=== PATIENT | female | born 1995 | race Caucasian/White ===

== ENCOUNTER 2016-11-18 11:17 | Outpatient (CLI) | payer MEDICAID ==
--- NOTE | 2016-11-18 16:42 | XRAY Report ---
THREE VIEW LUMBAR SPINE: 11/18/2016 CLINICAL INDICATION: Piriformis syndrome. AP, lateral, coned-down views of the lumbar spine demonstrate mild levoscoliosis, which may be positi onal in nature. There is no evidence of fracture or dislocation. The disk spaces are preserved. An IUD is incidentally noted in the pelvis. IMPRESSION: MILD LEVOSCOLIOSIS, WHICH MAY BE POSITIONAL IN NATURE. JOB #: [id number] EXT JOB #:[id number]
== END 2016-11-18 11:18 | disposition home or self-care (01) ==
LOC: DI.N 11:17
PROVIDERS: ATTEND Family Medicine
DX: M41.86 Other forms of scoliosis, lumbar region (principal)
CPT/HCPCS: 72100

== ENCOUNTER 2017-03-01 12:37 | Emergency (ER) | payer MEDICAID ==
[2017-03-01 12:49] VITALS: BP 116/74
[2017-03-01 13:14] LABS: RAPID STREP SCREEN REAGENT QC YELLOW (YELLOW)
--- NOTE | 2017-03-01 13:55 | ED Physician Documentation ---
PD HPI URI - Stated complaint Stated Complaint: FEVER/SORE THROAT/COUGH - Chief complaint Chief Complaint: Heent - History obtained from History obtained from: Patient - History of Present Illness Timing - onset: Other (2 days of cough, green drainage from her sinuses, sore throat, runny nose. She has had some low-grade fevers with a maximum temperature of 100. Also for the last 5 days she has had intermittent sharp central chest pain that is worse with her motion and deep breathing but not affected by exertion. She is not short of breath. She has no health problems, no significant family medical history, and no recent travel.) Review of Systems Constitutional: reports: Fever, Fatigue. denies: Chills Nose: reports: Rhinorrhea / runny nose, Congestion. denies: Sinus pressure / pain Throat: reports: Sore throat Cardiac: reports: Chest pain / pressure Respiratory: reports: Cough. 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 : None HEENT: None Psych: None Musculoskeletal: None Derm: None - Past Surgical History Past Surgical History: Yes General: Appendectomy - Present Medications Home Medications: Ambulatory Orders Medication Instructions Recorded Confirmed Acetaminophen [Tylenol] 1 tab PO PRN PRN 03/01/17 03/01/17 Clotrimazole 1 gm TOP TID 28 Days 03/01/17 Ibuprofen [Motrin] 800 mg PO Q8H PRN #30 tablet 03/01/17 - Allergies Allergies/Adverse Reactions: Allergies Allergy/AdvReac Type Severity Reaction Status Date / Time No Known Drug Allergies Allergy Verified 03/01/17 12:49 - Social History Does the pt smoke?: Yes Smoking Status: Light tobacco smoker Does the pt drink ETOH?: Yes ETOH Use: Wine, Beer, Liquor Does the pt have substance abuse?: No - Immunizations Immunizations are current?: Yes - POLST Patient has POLST: No PD ED PE NORMAL - Vitals Vital signs reviewed: Yes - General General: Alert and oriented X 3, No acute distress - HEENT HEENT: Ears normal, Pharynx benign - Neck Neck: Supple, no meningeal sign, No bony TTP, No adenopathy - Cardiac Cardiac: RRR, No murmur, Other (Tender to the upper costochondral joints) - Respiratory Respiratory: No respiratory distress, Clear bilaterally - Abdomen Abdomen: Non tender - Derm Derm: Other (2 spots of ringworm to the dorsum of the right hand) - Extremities Extremities: No edema, No calf tenderness / cord - Neuro Neuro: Alert and oriented X 3, Normal speech - Psych Psych: Normal mood, Normal affect Results - Vitals Vitals: Vital Signs - 24 hr 03/01/17 12:45 Temperature 36.4 C L Heart Rate 79 Respiratory 18 Rate Blood Pressure 116/74 O2 Saturation 98 Oxygen O2 Source Room air - EKG (time done) 1436 Rate: Rate (enter#) (54) Rhythm: NSR [place]: Normal Intervals: Normal [place] QRS: Normal Ischemia: Normal ST segments Computer interpretation: Agree with computer - Labs Labs: Laboratory Tests 03/01/17 12:50 Group A Strep Rapid Negative - Rads (name of study) 2v chest Radiology: EMP read contemporaneously (normal) PD MEDICAL DECISION MAKING - ED course ED course: 21-year-old woman with 2 complaints, what seems to be a viral URI with negative rapid strep, also chest pain consistent with costochondritis. Departure - Departure Disposition: 01 Home, Self Care Clinical Impression: Viral URI, Costochondritis, Ringworm Condition: Good Record reviewed to determine appropriate education?: Yes Instructions: ED Pharyngitis Viral, ED Chest Pain Costochondritis Prescriptions: Clotrimazole 1 gm TOP TID 28 Days Ibuprofen [Motrin] 800 mg PO Q8H PRN #30 tablet PRN Reason: PAIN &/OR FEVER Comments: Call your doctor to arrange a follow-up appointment, make the next available appointment. In the interim, return anytime if worse or if new symptoms develop. Forms: Activity restrictions Discharge Date/Time: 03/01/17 14:52
--- NOTE | 2017-03-01 15:01 | XRAY Preliminary Report ---
Exam: XR Chest 2 View PA/LAT IMPRESSION: No focal lung consolidation or pleural effusions. [facility] SITE ID: [id number]
--- NOTE | 2017-03-01 15:03 | XRAY Report ---
EXAM: CHEST RADIOGRAPHY EXAM DATE: 03/01/2017 02:45 PM. CLINICAL HISTORY: Cough and congestion COMPARISON: None. TECHNIQUE: 2 views. FINDINGS: Lungs/Pleura: No focal lung consolidation. No pleural effusion. No pneumothorax. Mediastinum: Cardiac silhouette size appears unremarkable. Other: None. IMPRESSION: No focal lung consolidation or pleural effusions. [facility] Referring Provider Line: [phone] SITE ID: [id number]
== END 2017-03-01 14:52 | disposition home or self-care (01) ==
LOC: ED 12:37
DX: J06.9 Acute upper respiratory infection, unspecified (principal); M94.0 Chondrocostal junction syndrome [Tietze]; B35.9 Dermatophytosis, unspecified; F17.200 Nicotine dependence, unspecified, uncomplicated
CPT/HCPCS: 71020; 87070; 87430; 93005; 99283

== ENCOUNTER 2017-03-16 11:04 | Outpatient (CLI) | payer MEDICAID ==
[2017-03-16 19:22] LABS: BASOPHILS # (AUTO) 0.1 10^3/uL (0.0-0.1); BASOPHILS % (AUTO) 0.9 %; EOSINOPHILS # (AUTO) 0.1 10^3/uL (0.0-0.7); EOSINOPHILS % (AUTO) 1.4 %; HCT - HEMATOCRIT 40.3 % (37.0-47.0); HGB - HEMOGLOBIN 13.7 g/dL (12.0-16.0); LYMPHOCYTES # (AUTO) 2.4 10^3/uL (1.5-3.5); LYMPHOCYTES % (AUTO) 33.8 %; MEAN CORPUSCULAR HEMOGLOBIN 30.8 pg (27.0-31.0); MEAN CORPUSCULAR HGB CONC 34.1 g/dL (32.0-36.0); MEAN CORPUSCULAR VOLUME 90.4 fL (81.0-99.0); MEAN PLATELET VOLUME 9.4 fL (7.9-10.8); MONOCYTES # (AUTO) 0.6 10^3/uL (0.0-1.0); MONOCYTES % (AUTO) 7.9 %; NEUTROPHILS # (AUTO) 3.9 10^3/uL (1.5-6.6); RED BLOOD COUNT 4.46 10^6/uL (4.20-5.40); RED CELL DISTRIBUTION WIDTH 12.9 % (12.0-15.0)
[2017-03-16 19:23] LABS: ALBUMIN/GLOBULIN RATIO 1.5 (1.0-2.2); BUN - BLOOD UREA NITROGEN 10 mg/dL (6-20); CARBON DIOXIDE - CO2 26 mmol/L (21-32); CHLORIDE 107 mmol/L (101-111); CREATININE 0.7 mg/dL (0.4-1.0); GFR - MDRD 104 (>89); GLUCOSE 89 mg/dL (70-100); POTASSIUM 3.9 mmol/L (3.5-5.0); SODIUM 137 mmol/L (135-145); TOTAL PROTEIN 6.9 g/dL (6.7-8.2)
== END 2017-03-16 11:05 | disposition home or self-care (01) ==
LOC: LAB.N 11:04
PROVIDERS: ATTEND Family Medicine
DX: R55 Syncope and collapse (principal); R53.83 Other fatigue
CPT/HCPCS: 36415; 80053; 84443; 85025

== ENCOUNTER 2017-05-18 10:44 | Emergency (ER) | payer MEDICAID ==
--- NOTE | 2017-05-18 12:36 | XRAY Preliminary Report ---
Exam: XR CHEST 2 VIEW PA/LAT IMPRESSION: No radiographically apparent acute abnormality in the chest. Clear lungs. No significant change from prior. [facility] SITE ID: [id number]
--- NOTE | 2017-05-18 12:38 | XRAY Report ---
EXAM: CHEST RADIOGRAPHY EXAM DATE: 05/18/2017 11:57 AM. CLINICAL HISTORY: Fever and left sided coarse sounds. COMPARISON: 03/01/2017. TECHNIQUE: 2 views. FINDINGS: Lungs/Pleura: No focal opacities evident. No pleural effusion. No pneumothorax. Normal volumes. Mediastinum: Heart and mediastinal contours are unremarkable. Other: Bilateral nipple rings noted. IMPRESSION: No radiographically apparent acute abnormality in the chest. Clear lungs. No significant change from prior. [facility] Referring Provider Line: [phone] SITE ID: [id number]
--- NOTE | 2017-05-18 12:59 | ED Physician Documentation ---
History of Present Illness - Stated complaint Stated Complaint: FEVER/CONGESTION - Chief complaint Chief Complaint: Heent - History obtained from History obtained from: Patient (pt is here with a couple days of sinus congestion, runny nose, cough, sore throat and fevers, no rash,) Review of Systems Constitutional: reports: Fever, Chills Eyes: denies: Loss of vision, Discharge Ears: denies: Loss of hearing, Ear pain, Drainage/discharge, Tinnitus/ringing Nose: reports: Congestion, Sinus pressure / pain Throat: reports: Dental pain / toothache, Sore throat Cardiac: denies: Chest pain / pressure, Palpitations Respiratory: reports: Cough, Wheezing. 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 HEENT: None Psych: None Musculoskeletal: None Derm: None - Past Surgical History Past Surgical History: Yes General: Appendectomy - Present Medications Home Medications: Ambulatory Orders Medication Instructions Recorded Confirmed Cetirizine HCl/Pseudoephedrine 1 each PO BID PRN #30 tab.er.12h 05/18/17 [Zyrtec-D Tablet] Fluticasone [Flonase] 1 sprays MIKY DAILY #1 bottle 05/18/17 - Allergies Allergies/Adverse Reactions: Allergies Allergy/AdvReac Type Severity Reaction Status Date / Time No Known Drug Allergies Allergy Verified 03/01/17 12:49 - Social History Does the pt smoke?: Yes Smoking Status: Current every day smoker Does the pt drink ETOH?: Yes Does the pt have substance abuse?: No - Immunizations Immunizations are current?: Yes - POLST Patient has POLST: No PD ED PE NORMAL - Vitals Vital signs reviewed: Yes - General General: Alert and oriented X 3, No acute distress, Well developed/nourished - HEENT HEENT: Atraumatic, Ears normal, Moist mucous membranes, Pharynx benign - Cardiac Cardiac: RRR, No murmur - Respiratory Respiratory: No respiratory distress, Clear bilaterally - Abdomen Abdomen: Normal bowel sounds, Soft, Non tender - Derm Derm: Normal color, No rash - Extremities Extremities: No deformity - Neuro Neuro: Alert and oriented X 3 Eye Opening: Spontaneous Motor: Obeys Commands Verbal: Oriented GCS Score: 15 - Psych Psych: Normal mood, Normal affect Results - Vitals Vitals: Vital Signs - 24 hr 05/18/17 10:47 Temperature 36.4 C L Heart Rate 87 Respiratory 17 Rate Blood Pressure 140/79 H O2 Saturation 100 Oxygen O2 Source Room air - Rads (name of study) CXR Radiology: Final report received PD MEDICAL DECISION MAKING - ED course Complexity details: d/w patient ED course: no PNA on CXR. pt is non-toxic. no respiratory distress. no indication for ABX. discussed with her. will treat symptoms. Departure - Departure Disposition: 01 Home, Self Care Clinical Impression: Upper respiratory infection Condition: Good Instructions: ED URI Viral Follow-Up: Martell Melo MD [Primary Care Provider] - Prescriptions: Cetirizine HCl/Pseudoephedrine [Zyrtec-D Tablet] 1 each PO BID PRN #30 tab.er.12h PRN Reason: Allergy Symptoms Fluticasone [Flonase] 1 sprays MIKY DAILY #1 bottle Comments: take the medications as instructed. Return to the ER for any new or worsening symptoms.
[2017-05-18 13:11] VITALS: BP 128/70
== END 2017-05-18 13:11 | disposition home or self-care (01) ==
LOC: ED 10:44
DX: F17.200 Nicotine dependence, unspecified, uncomplicated (principal)
CPT/HCPCS: 71020; 99283

== ENCOUNTER 2017-07-14 18:29 | Emergency (ER) | payer MEDICAID ==
--- NOTE | 2017-07-14 19:51 | ED Physician Documentation ---
PD HPI ABD PAIN - Stated complaint Stated Complaint: AB PX - Chief complaint Chief Complaint: Abd Pain - History obtained from History obtained from: Patient - History of Present Illness Timing - onset: Other (She has chronic constipation which has been terrible over the last 2 weeks with basically no bowel movements despite taking multiple laxatives and suppositories. She Is not vomiting. There is no blood in the stool. Unlikely because she has an IUD in place. 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 HEENT: None Psych: None Musculoskeletal: None Derm: None - Past Surgical History Past Surgical History: Yes General: Appendectomy - Present Medications Home Medications: Ambulatory Orders Medication Instructions Recorded Confirmed No Known Home Medications [No 07/14/17 07/14/17 Known Home Medications] - Allergies Allergies/Adverse Reactions: Allergies Allergy/AdvReac Type Severity Reaction Status Date / Time No Known Drug Allergies Allergy Verified 03/01/17 12:49 - Social History Does the pt smoke?: Yes Smoking Status: Current every day smoker Does the pt drink ETOH?: Yes Does the pt have substance abuse?: No - Immunizations Immunizations are current?: Yes - POLST Patient has POLST: No PD ED PE NORMAL - Vitals Vital signs reviewed: Yes - General General: Alert and oriented X 3, No acute distress - Abdomen Abdomen: Normal bowel sounds, Soft, Non tender - Neuro Neuro: Alert and oriented X 3, Normal speech - Psych Psych: Normal mood, Normal affect Results - Vitals Vitals: Vital Signs - 24 hr 07/14/17 18:45 Temperature 36.7 C Heart Rate 72 Respiratory 16 Rate Blood Pressure 123/69 O2 Saturation 100 Oxygen O2 Source Room air - Labs Labs: Laboratory Tests 07/14/17 19:48 Urine Color YELLOW Urine Clarity CLEAR Urine pH 7.5 Ur Specific [place] <=1.005 Urine Protein NEGATIVE Urine Glucose (UA) NEGATIVE Urine Ketones NEGATIVE Urine Occult Blood NEGATIVE Urine Nitrite NEGATIVE Urine Bilirubin NEGATIVE Urine Urobilinogen 0.2 (NORMAL) Ur Leukocyte Esterase NEGATIVE Ur Microscopic Review NOT INDICATED Urine Culture Comments NOT INDICATED Urine HCG, Qual NEGATIVE PD MEDICAL DECISION MAKING - ED course ED course: She presents with constipation, felt better after an enema and some oral laxatives here with a bowel movements. Departure - Departure Disposition: 01 Home, Self Care Clinical Impression: Constipation Qualifiers: Constipation type: unspecified constipation type Qualified Code(s): K59.00 - Constipation, unspecified Condition: Good Record reviewed to determine appropriate education?: Yes Instructions: ED Constipation Comments: Use magnesium citrate and Dulcolax, both available [id number]. Follow-up with your doctor, next available appointment. Return if worse.
[2017-07-14 19:52] LABS: BILIRUBIN,URINE NEGATIVE (NEGATIVE); GLUCOSE, URINE (UA) NEGATIVE (NEGATIVE); KETONES,URINE (UA) NEGATIVE (NEGATIVE); LEUKOCYTE ESTERASE, URINE NEGATIVE (NEGATIVE); NITRITE,URINE NEGATIVE (NEGATIVE); OCCULT BLOOD,URINE NEGATIVE (NEGATIVE); PH,URINE 7.5 PH (5.0-7.5); PROTEIN,URINE NEGATIVE (NEGATIVE); UROBILINOGEN,URINE 0.2 (NORMAL) E.U./dL (NORMAL)
[2017-07-14 19:55] LABS: CLARITY,URINE CLEAR (CLEAR); HCG UR QUAL NEGATIVE
[2017-07-14] MEDS ORDERED: BISACODYL 5 MG TABLET PO STA (19:56)
[2017-07-14] MEDS ORDERED: MAGNESIUM CITRATE 296 ML BOTTLE PO STA (19:56)
[2017-07-14 20:58] VITALS: BP 108/66
== END 2017-07-14 21:00 | disposition home or self-care (01) ==
LOC: ED 18:29
DX: K59.00 Constipation, unspecified (principal); F17.200 Nicotine dependence, unspecified, uncomplicated
CPT/HCPCS: 81003; 81025; 99283; A9270; 81001; 87086

== ENCOUNTER 2017-09-12 13:34 | Emergency (ER) | payer MEDICAID ==
[2017-09-12] MEDS ORDERED: KETOROLAC 60 MG/2 ML VIAL IM STA (13:53)
--- NOTE | 2017-09-12 13:55 | ED Physician Documentation ---
PD HPI BACK PAIN - Stated complaint Stated Complaint: BACK PX - Chief complaint Chief Complaint: Back Pain - History obtained from History obtained from: Patient - History of Present Illness Timing - onset: Yesterday (She has a history of left-sided sciatica for which she was in physical therapy and only took axgu-lrx-tjpxxmi meds last year. Her pain recurred more severely last night while picking up her son, it is in the Left sciatic notch and radiates into the left leg with numbness of the left leg partial especially on the pinky toe side of her foot. 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 : None HEENT: None Psych: None Musculoskeletal: None Derm: None - Past Surgical History Past Surgical History: Yes General: Appendectomy - Present Medications Home Medications: Ambulatory Orders Medication Instructions Recorded Confirmed HYDROcod/ACETAM 5/325 [[place] 5/325] 1 - 2 ea PO Q6H PRN #15 tablet 09/12/17 Multivitamin [Multiple Vitamins] 1 tab PO DAILY 09/12/17 09/12/17 predniSONE [Deltasone] 20 mg PO [id number] #21 tab 09/12/17 - Allergies Allergies/Adverse Reactions: Allergies Allergy/AdvReac Type Severity Reaction Status Date / Time No Known Drug Allergies Allergy Verified 09/12/17 13:43 - Social History Does the pt smoke?: Yes Smoking Status: Former smoker Does the pt drink ETOH?: Yes Does the pt have substance abuse?: No Substance Use and Type: Marijuana - Immunizations Immunizations are current?: Yes - POLST Patient has POLST: No PD ED PE NORMAL - Vitals Vital signs reviewed: Yes - General General: Alert and oriented X 3, No acute distress - Cardiac Cardiac: RRR, No murmur - Respiratory Respiratory: No respiratory distress, Clear bilaterally - Abdomen Abdomen: Non tender - Back Back: No spinal TTP, Other (TTP L sciatic notch) - Extremities Extremities: Other (Mild decreased sensation, "80%" in left leg, alysia lateral calf with equal patellar reflexes and babinski reflexes. Nl gait.) - Neuro Neuro: Alert and oriented X 3, Normal speech - Psych Psych: Normal mood, Normal affect Results - Vitals Vitals: Vital Signs - 24 hr 09/12/17 13:40 Temperature 36.9 C Heart Rate 88 Respiratory 16 Rate Blood Pressure 114/75 O2 Saturation 98 Oxygen O2 Source Room air PD MEDICAL DECISION MAKING - ED course ED course: This patient has seemingly uncomplicated musculoskeletal back pain. The patient has no "red flags." Specifically denies IV drug use, fevers, incontinence, saddle anesthesia. Spinal epidural abscess was considered, given that the patient has no fever, is not diabetic, has no spinal tenderness, does not use IV drugs, and has no bilateral neurologic symptoms, the diagnosis of spinal epidural abscess is considered exceedingly unlikely. Departure - Departure Disposition: 01 Home, Self Care Clinical Impression: Sciatica Qualifiers: Laterality: left Qualified Code(s): M54.32 - Sciatica, left side Condition: Good Record reviewed to determine appropriate education?: Yes Instructions: ED Sciatica Prescriptions: HYDROcod/ACETAM 5/325 [[place] 5/325] 1 - 2 ea PO Q6H PRN #15 tablet PRN Reason: Pain predniSONE [Deltasone] 20 mg PO [id number] #21 tab Comments: Call your doctor to arrange a follow-up appointment, make the next available appointment. In the interim, return anytime if worse or if new symptoms develop. Do not drink or drive while taking narcotic pain medication. Note that many narcotic pain relievers also contain Tylenol/acetaminophen. Please ensure that your total dose of acetaminophen from all sources does not exceed 3 g (3000 mg) per day. You may get constipated while on this medication. Take a stool softener such as Colace twice a day while you are on it. Also add an xuqf-vcn-qnrfjem laxative such as senna or MiraLAX on any day that you do not have a bowel movement. If you received a narcotic pain medication or sedative while in the emergency department, do not drive for the next 24 hours. Forms: Activity restrictions
[2017-09-12 14:24] VITALS: BP 107/69
== END 2017-09-12 14:23 | disposition home or self-care (01) ==
LOC: ED 13:34
DX: M54.32 Sciatica, left side (principal); Z87.891 Personal history of nicotine dependence
CPT/HCPCS: 96372; 99283

== ENCOUNTER 2018-03-27 10:27 | Emergency (ER) | payer MEDICAID ==
[2018-03-27 11:09] LABS: BILIRUBIN,URINE NEGATIVE (NEGATIVE); GLUCOSE, URINE (UA) NEGATIVE (NEGATIVE); KETONES,URINE (UA) NEGATIVE (NEGATIVE); LEUKOCYTE ESTERASE, URINE SMALL (NEGATIVE); NITRITE,URINE NEGATIVE (NEGATIVE); OCCULT BLOOD,URINE LARGE (NEGATIVE); PH,URINE 7.5 PH (5.0-7.5); PROTEIN,URINE NEGATIVE (NEGATIVE); UROBILINOGEN,URINE 0.2 (NORMAL) E.U./dL (NORMAL)
[2018-03-27 11:11] LABS: CLARITY,URINE HAZY (CLEAR)
[2018-03-27 11:23] LABS: HCG UR QUAL NEGATIVE
[2018-03-27 11:27] LABS: BACTERIA,URINE Few /HPF (None Seen); RBC,URINE 0-5 /HPF (0-5); SQUAMOUS EPITHELIAL CELL,UR MOD Squamous (<= Few)
[2018-03-27] MEDS ORDERED: PHENAZOPYRIDINE 100 MG TABLET PO STA (12:03)
[2018-03-27] MEDS ORDERED: SULFAMETH/TRIMETH DS 800/160 MG TABLET PO STA (12:03)
--- NOTE | 2018-03-27 12:05 | ED Physician Documentation ---
PD HPI FEMALE - Stated complaint Stated Complaint: FEMALE - Chief complaint Chief Complaint: UTI - History obtained from History obtained from: Patient - History of Present Illness Timing - onset: Other (22-year-old with UTIs about once a year presents with 2 days of urinary burning and frequency with suprapubic pain and mild left flank pain and subjective fever and nausea without vomiting or measured fevers.) Review of Systems Constitutional: reports: Fever. 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 HEENT: None Psych: None Musculoskeletal: None Derm: None - Past Surgical History Past Surgical History: Yes General: Appendectomy - Present Medications Home Medications: Ambulatory Orders Medication Instructions Recorded Confirmed HYDROcod/ACETAM 5/325 [[place] 5/325] 1 - 2 ea PO Q6H PRN #15 tablet 09/12/17 Multivitamin [Multiple Vitamins] 1 tab PO DAILY 09/12/17 09/12/17 predniSONE [Deltasone] 20 mg PO [id number] #21 tab 09/12/17 Phenazopyridine HCl [Pyridium] 200 mg PO TID PRN #6 tablet 03/27/18 Sulfamethoxazole/Trimethoprim 1 each PO BID #14 tablet 03/27/18 [Sulfamethoxazole-Tmp Ds Tablet] - Allergies Allergies/Adverse Reactions: Allergies Allergy/AdvReac Type Severity Reaction Status Date / Time No Known Drug Allergies Allergy Verified 09/12/17 13:43 - Social History Does the pt smoke?: No Smoking Status: Never smoker Does the pt drink ETOH?: Yes Does the pt have substance abuse?: No - Immunizations Immunizations are current?: Yes - POLST Patient has POLST: No PD ED PE NORMAL - Vitals Vital signs reviewed: Yes - General General: Alert and oriented X 3, No acute distress - Abdomen Abdomen: Normal bowel sounds, Soft, Non tender - Back Back: Other (Mild left CVA tenderness) - Neuro Neuro: Alert and oriented X 3, Normal speech Results - Vitals Vitals: Vital Signs - 24 hr 03/27/18 10:48 Temperature 36.3 C L Heart Rate 74 Respiratory 16 Rate Blood Pressure 117/56 L O2 Saturation 100 Oxygen O2 Source Room air - Labs Labs: Laboratory Tests 03/27/18 03/27/18 10:50 10:50 Urine Color YELLOW Urine Clarity HAZY Urine pH 7.5 Ur Specific [place] 1.010 1.010 Urine Protein NEGATIVE Urine Glucose (UA) NEGATIVE Urine Ketones NEGATIVE Urine Occult Blood LARGE H Urine Nitrite NEGATIVE Urine Bilirubin NEGATIVE Urine Urobilinogen 0.2 (NORMAL) Ur Leukocyte Esterase SMALL H Urine RBC 0-5 Urine WBC 6-10 H Ur Squamous Epith Cells MOD Squamous H Urine Bacteria Few Ur Microscopic Review INDICATED Urine Culture Comments NOT INDICATED Urine HCG, Qual NEGATIVE Departure - Departure Disposition: 01 Home, Self Care Clinical Impression: Pyelonephritis Condition: Good Record reviewed to determine appropriate education?: Yes Instructions: Pyelonephritis Dc Prescriptions: Phenazopyridine HCl [Pyridium] 200 mg PO TID PRN #6 tablet PRN Reason: dysuria Sulfamethoxazole/Trimethoprim [Sulfamethoxazole-Tmp Ds Tablet] 1 each PO BID #14 tablet Comments: We will culture your urine, the results should be done in 48-72 hours. If an antibiotic change is necessary we will call you. Return if worse in the meantime, especially if you develop increasing flank pain, fevers, or cannot keep down the medication. Forms: Activity restrictions
[2018-03-27 12:19] VITALS: BP 99/56
== END 2018-03-27 12:17 | disposition home or self-care (01) ==
LOC: ED 10:27
DX: N12 Tubulo-interstitial nephritis, not specified as acute or chronic (principal)
CPT/HCPCS: 81001; 81025; 87077; 87086; 87181; 99283; A9270; 81003

== ENCOUNTER 2018-04-28 13:05 | Emergency (ER) | payer MEDICAID ==
[2018-04-28] MEDS ORDERED: BUFFERED LIDOCAINE 10 ML SYRINGE SUBQ STA (13:15)
[2018-04-28] MEDS ORDERED: TETANUS/DIPHTHERIA/PERTUSSIS 0.5 ML SYRINGE IM ONE (13:15)
--- NOTE | 2018-04-28 13:19 | ED Physician Documentation ---
PD HPI UPPER EXT INJURY - Stated complaint Stated Complaint: L FINGER LAC - Chief complaint Chief Complaint: Laceration - History obtained from History obtained from: Patient - History of Present Illness Location: Left (right Handed young woman was cutting oranges at home and cut her left index finger. 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 HEENT: None Psych: None Musculoskeletal: None Derm: None - Past Surgical History Past Surgical History: Yes General: Appendectomy - Present Medications Home Medications: Ambulatory Orders Medication Instructions Recorded Confirmed Multivitamin [Multiple Vitamins] 1 tab PO DAILY 09/12/17 09/12/17 - Allergies Allergies/Adverse Reactions: Allergies Allergy/AdvReac Type Severity Reaction Status Date / Time No Known Drug Allergies Allergy Verified 04/28/18 13:11 - Social History Does the pt smoke?: No Smoking Status: Never smoker Does the pt drink ETOH?: Yes Does the pt have substance abuse?: No - Immunizations Immunizations are current?: Yes - POLST Patient has POLST: No PD ED PE NORMAL - Vitals Vital signs reviewed: Yes - General General: Alert and oriented X 3, No acute distress - Extremities Extremities: Other (On the side of the pulp of the left 2nd finger there is a 1 cm curved laceration without distal neurovascular compromise or nailbed involvement.) - Neuro Neuro: Alert and oriented X 3, Normal speech Results - Vitals Vitals: Vital Signs - 24 hr 04/28/18 13:09 Temperature 36.8 C Heart Rate 70 Respiratory 16 Rate Blood Pressure 123/76 O2 Saturation 97 Oxygen O2 Source Room air Procedures - Laceration (location) L 2nd finger Length in cm: 1 Wound type: Curved, Superficial Neurovascular status: Sensory intact, Motor intact, Vascular intact Anesthesia: Lidocaine 1%, With bicarb (digital block) Wound Preparation: Betadine, Irrigated copiously NS Skin layer closure: Nylon, Interrupted, Size #-0 - enter number (5-0), Sutures - enter # (3) Other: Patient tolerated well, No complications, Neurovascular intact, Tetanus booster given Departure - Departure Disposition: 01 Home, Self Care Clinical Impression: Laceration Condition: Good Record reviewed to determine appropriate education?: Yes Instructions: ED Laceration Hand Comments: Come back for any signs of infection which would include: Redness, swelling, drainage, increased pain, or fevers. Follow-up with your physician in 14 days for suture removal. Forms: Activity restrictions
[2018-04-28 13:53] VITALS: BP 120/72
== END 2018-04-28 13:52 | disposition home or self-care (01) ==
LOC: ED 13:05
DX: S61.210A Laceration without foreign body of right index finger without damage to nail, initial encounter (principal); W26.0XXA Contact with knife, initial encounter; Y93.G1 Activity, food preparation and clean up; Y92.009 Unspecified place in unspecified non-institutional (private) residence as the place of occurrence of the external cause; Z23 Encounter for immunization
CPT/HCPCS: 12001; 90471; 99282; 99283

== ENCOUNTER 2018-05-12 20:03 | Emergency (ER) | payer MEDICAID ==
[2018-05-12] MEDS ORDERED: ACETAMINOPHEN 500 MG TABLET PO STA (20:17)
[2018-05-12] MEDS ORDERED: AMOX/CLAV 875 MG/125 MG TABLET PO STA (20:46)
--- NOTE | 2018-05-12 20:53 | ED Physician Documentation ---
PD HPI HEENT - Stated complaint Stated Complaint: FEVER - Chief complaint Chief Complaint: Fever - History obtained from History obtained from: Patient - History of Present Illness Timing - onset: Last night Timing - details: Gradual onset Severity Comments: moderate Location: Throat Improves: Medication Worsens: Swalllowing, Temperatures Associated symptoms: Fever, Rhinorrhea, Other (chills and body aches). No: Facial swelling, Headache Similar symptoms before: No diagnosis Recently seen: Not recently seen Review of Systems Constitutional: reports: Fever, Chills, Myalgias, Fatigue Eyes: reports: Discharge Ears: reports: Ear pain Nose: reports: Rhinorrhea / runny nose Throat: reports: Sore throat Respiratory: denies: Cough GI: denies: Abdominal Pain : denies: Dysuria Skin: denies: Rash Musculoskeletal: denies: Neck pain Neurologic: denies: Headache Psychiatric: denies: Hallucinations PD PAST MEDICAL HISTORY - Past Medical History Cardiovascular: None Respiratory: None Endocrine/Autoimmune: None GI: None 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 : None HEENT: None Psych: None Musculoskeletal: None Derm: None - Past Surgical History Past Surgical History: Yes General: Appendectomy - Present Medications Home Medications: Ambulatory Orders Medication Instructions Recorded Confirmed Multivitamin [Multiple Vitamins] 1 tab PO DAILY 09/12/17 05/12/18 Amoxicillin 875 mg PO BID #20 tablet 05/12/18 - Allergies Allergies/Adverse Reactions: Allergies Allergy/AdvReac Type Severity Reaction Status Date / Time No Known Drug Allergies Allergy Verified 05/12/18 20:09 - Social History Does the pt smoke?: No Smoking Status: Former smoker Does the pt drink ETOH?: Yes Does the pt have substance abuse?: No Substance Use and Type: Marijuana - Immunizations Immunizations are current?: Yes - POLST Patient has POLST: No PD ED PE NORMAL - General General: Alert and oriented X 3 - HEENT HEENT: Atraumatic, PERRL, EOMI, Ears normal - Neck Neck: Supple, no meningeal sign - Cardiac Cardiac: RRR (Tachycardia) - Respiratory Respiratory: No respiratory distress, Clear bilaterally - Derm Derm: Normal color - Extremities Extremities: No deformity - Neuro Neuro: Alert and oriented X 3, Normal speech - Psych Psych: Normal affect PD ED PE EXPANDED - HEENT HEENT: Ears normal, Nasal congestion, Pharyngeal erythema, Swollen tonsils, Tonsillar exudate, Dentition normal. No: Soft palate petecchiae, HUB BORER Results - Vitals Vitals: Vital Signs - 24 hr 05/12/18 05/12/18 05/12/18 20:04 20:14 20:48 Temperature 38.0 C H 38.9 C H Heart Rate 148 H 126 H 109 H Respiratory 16 Rate Blood Pressure 111/64 O2 Saturation 93 96 97 Oxygen O2 Source Room air - Labs Labs: Laboratory Tests 05/12/18 05/12/18 20:15 20:15 Influenza A (Rapid) Negative Influenza B (Rapid) Negative Group A Strep Rapid POSITIVE H PD MEDICAL DECISION MAKING - ED course ED course: The patient has Strep pharyngitis, the patient appears well-hydrated and nontoxic and there is no clinical evidence of peritonsillar abscess or retropharyngeal abscess. Presently, the patient appears appropriate for discharge with outpatient management. Discussed warning signs and recommended returning for any worsening or concerns. Departure - Departure Disposition: 01 Home, Self Care Clinical Impression: Strep pharyngitis Condition: Good Instructions: ED Strep Pharyngitis Conf Follow-Up: Martell Melo MD [Primary Care Provider] - Within 1 week Prescriptions: Amoxicillin 875 mg PO BID #20 tablet Comments: Please return to the emergency department for worsening symptoms or any concerns Forms: Activity restrictions
[2018-05-12 21:04] VITALS: BP 112/67
== END 2018-05-12 21:03 | disposition home or self-care (01) ==
LOC: ED 20:03
DX: J02.0 Streptococcal pharyngitis (principal); Z87.891 Personal history of nicotine dependence
CPT/HCPCS: 87275; 87276; 87430; 99283; A9270

== ENCOUNTER 2018-06-24 23:30 | Emergency (ER) | payer MEDICAID ==
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
[2018-06-25] MEDS ORDERED: LIDOCAINE 1% 2 ML VIAL SUBQ STA (00:47)
[2018-06-25] MEDS ORDERED: BACITRACIN OINT TOP ONE (03:03)
[2018-06-25 03:04] VITALS: BP 99/75
== END 2018-06-25 03:09 | disposition home or self-care (01) ==
LOC: ED 23:30
DX: S01.111A Laceration without foreign body of right eyelid and periocular area, initial encounter (principal); W51.XXXA Accidental striking against or bumped into by another person, initial encounter; Y92.252 Music hall as the place of occurrence of the external cause
CPT/HCPCS: 12013; 99282; 99283; A9270

== ENCOUNTER 2018-06-26 17:58 | Emergency (ER) | payer MEDICAID ==
[2018-06-26 18:12] VITALS: BP 112/64
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
--- NOTE | 2018-06-26 19:19 | CT Report ---
Reason: head inj Procedure Date: 06/26/2018 Accession Number: [id number] / [id number] Procedure: CT - Head W/O CPT Code: FULL RESULT: EXAM: CT HEAD EXAM DATE: 06/26/2018 06:59 PM. CLINICAL HISTORY: Head injury. Pain behind right eye and forehead. COMPARISON: None. TECHNIQUE: Multiaxial CT images were obtained from the foramen magnum to the vertex. Reformats: Sagittal and coronal. IV contrast: None. In accordance with CT protocol optimization, one or more of the following dose reduction techniques were utilized for this exam: automated exposure control, adjustment of mA and/or KV based on patient size, or use of iterative reconstructive technique. FINDINGS: Parenchyma: No intraparenchymal hemorrhage, mass effect, or CT findings of evolving acute/subacute infarct. Lawson-white differentiation is distinct. Extraaxial Spaces: Normal for age. No subdural or epidural collections identified. Ventricles: The ventricles and basal cisterns are patent. No hydrocephalus or midline shift. Sinuses and Orbits: Imaged paranasal sinuses, orbits, and mastoids show no significant abnormality. Bones: No evidence of fracture or calvarial defect. Other: Mild right supraorbital superficial soft tissue swelling. IMPRESSION: 1. Mild right supraorbital superficial soft tissue swelling. 2. No acute intracranial abnormality. RADIA
== END 2018-06-26 19:28 | disposition home or self-care (01) ==
LOC: ED 17:58
DX: S06.0X0A Concussion without loss of consciousness, initial encounter (principal); W51.XXXA Accidental striking against or bumped into by another person, initial encounter; Y92.89 Other specified places as the place of occurrence of the external cause
CPT/HCPCS: 70450; 99282; 99283

== ENCOUNTER 2018-11-16 00:20 | Emergency (ER) | payer MEDICAID ==
[2018-11-16 00:28] VITALS: BP 121/69
[2018-11-16 00:46] LABS: GLUCOSE, URINE (UA) NEGATIVE (NEGATIVE); KETONES,URINE (UA) NEGATIVE (NEGATIVE); LEUKOCYTE ESTERASE, URINE MODERATE (NEGATIVE); NITRITE,URINE POSITIVE (NEGATIVE); OCCULT BLOOD,URINE LARGE (NEGATIVE); PH,URINE 5.5 PH (5.0-7.5); PROTEIN,URINE 100 mg/dL (NEGATIVE); UROBILINOGEN,URINE 1 (NORMAL) E.U./dL (NORMAL)
--- NOTE | 2018-11-16 00:50 | ED Physician Documentation ---
PD HPI FEMALE - Stated complaint Stated Complaint: FEM - Chief complaint Chief Complaint: UTI - History obtained from History obtained from: Patient - History of Present Illness Timing - onset: Today Timing - duration: Days (1) Timing - details: Abrupt onset Associated symptoms: Abdominal pain (Suprapubic), Dysuria, Urinary frequency, Hematuria. No: Fever, Back pain, Vaginal bleeding, Vaginal discharge Contributing factors: IUD. No: Similar symptoms before: Diagnosis (UTIs) Recently seen: Not recently seen - Additional information Additional information: Is a 23-year-old who has a long-standing history of urinary tract infections presents with her complains that she woke up this morning went to the bathroom and had burning when she urinated that is just been increasing througho ut the day. She is little tender in the suprapubic area. She had some nausea and diarrhea yesterday. She does not know why. No vomiting. She has not taken any medications for her symptoms. She did see blood in the toilet. Denies stating she has a Mirena and does not get periods. No fever. She has not felt dizzy. Review of Systems Constitutional: denies: Fever GI: reports: Abdominal Pain, Nausea, Diarrhea. 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 HEENT: None Psych: None Musculoskeletal: None Derm: None - Past Surgical History Past Surgical History: Yes General: Appendectomy - Present Medications Home Medications: Ambulatory Orders Medication Instructions Recorded Confirmed Nitrofurantoin Monohyd/M-Cryst 100 mg PO BID #14 capsule 11/16/18 [Macrobid 100 mg Capsule] Phenazopyridine HCl [Pyridium] 200 mg PO TID PRN #6 tablet 11/16/18 - Allergies Allergies/Adverse Reactions: Allergies Allergy/AdvReac Type Severity Reaction Status Date / Time No Known Drug Allergies Allergy Verified 11/16/18 00:28 - Social History Does the pt smoke?: No Smoking Status: Never smoker Does the pt drink ETOH?: Yes Does the pt have substance abuse?: No - Immunizations Immunizations are current?: Yes - POLST Patient has POLST: No PD ED PE NORMAL - Vitals Vital signs reviewed: Yes - General General: Alert and oriented X 3, No acute distress, Well developed/nourished - HEENT HEENT: Atraumatic, Moist mucous membranes - Cardiac Cardiac: RRR, No murmur - Respiratory Respiratory: No respiratory distress, Clear bilaterally - Abdomen Abdomen: Normal bowel sounds, Soft, Other (There is some suprapubic tenderness) - Back Back: No CVA TTP - Derm Derm: Normal color, No rash - Neuro Neuro: Alert and oriented X 3, Normal speech - Psych Psych: Normal mood, Normal affect Results - Vitals Vitals: Vital Signs - 24 hr 11/16/18 11/16/18 00:24 01:03 Temperature 36.7 C Heart Rate 90 Respiratory 17 17 Rate Blood Pressure 121/69 O2 Saturation 99 Oxygen O2 Source Room air - Labs Labs: Laboratory Tests 11/16/18 00:30 Urine Color DARK YELLOW Urine Clarity CLOUDY Urine pH 5.5 Ur Specific [place] 1.025 Urine Protein 100 H Urine Glucose (UA) NEGATIVE Urine Ketones NEGATIVE Urine Occult Blood LARGE H Urine Nitrite POSITIVE H Urine Bilirubin NEGATIVE Urine Urobilinogen 1 (NORMAL) Ur Leukocyte Esterase MODERATE H Urine RBC TNTC H Urine WBC 11-25 H Ur Squamous Epith Cells RARE Squamous Urine Bacteria Few Ur Microscopic Review INDICATED Urine Culture Comments INDICATED Urine HCG, Qual NEGATIVE PD MEDICAL DECISION MAKING - ED course ED course: Urinalysis is positive. She is not . She will be treated with Macrobid and Pyridium. She is instructed to drink lots of water. Departure - Departure Disposition: 01 Home, Self Care Clinical Impression: UTI (urinary tract infection) Qualifiers: Urinary tract infection type: acute cystitis Hematuria presence: with hematuria Qualified Code(s): N30.01 - Acute cystitis with hematuria Condition: Good Instructions: ED UTI Cystitis Female Follow-Up: Aditya Timmons PA-C [Primary Care Provider] - Prescriptions: Nitrofurantoin Monohyd/M-Cryst [Macrobid 100 mg Capsule] 100 mg PO BID #14 capsule Phenazopyridine HCl [Pyridium] 200 mg PO TID PRN #6 tablet PRN Reason: dysuria Comments: Take the Macrobid twice a day for 7 days. Pyridium can be used up to 3 times a day if needed for discomfort. Do not wear contact lenses if you are taking the Pyridium. Your symptoms should be improving within 48 hours. If not or you develop back pain, fever or vomiting he should be reevaluated.
[2018-11-16 01:07] LABS: BILIRUBIN,URINE NEGATIVE (NEGATIVE); CLARITY,URINE CLOUDY (CLEAR); ICTOTEST,URINE NEGATIVE
[2018-11-16 01:08] LABS: BACTERIA,URINE Few /HPF (None Seen); HCG UR QUAL NEGATIVE; RBC,URINE TNTC /HPF (0-5); SQUAMOUS EPITHELIAL CELL,UR RARE Squamous (<= Few)
[2018-11-16] MEDS ORDERED: PHENAZOPYRIDINE 100 MG TABLET PO STA (01:16)
[2018-11-16] MEDS ORDERED: NITROFURANTOIN MACRO 100 MG CAPSULE PO STA (01:16)
== END 2018-11-16 01:41 | disposition home or self-care (01) ==
LOC: ED 00:20
DX: N30.01 Acute cystitis with hematuria (principal)
CPT/HCPCS: 81001; 81025; 87086; 87181; 99283; A9270; 81003

== ENCOUNTER 2019-01-02 15:47 | Outpatient (CLI) | payer MEDICAID ==
[2019-01-02 16:08] LABS: BASOPHILS # (AUTO) 0.1 10^3/uL (0.0-0.1); BASOPHILS % (AUTO) 0.8 %; EOSINOPHILS # (AUTO) 0.1 10^3/uL (0.0-0.7); EOSINOPHILS % (AUTO) 1.5 %; HGB - HEMOGLOBIN 13.1 g/dL (12.0-16.0); LYMPHOCYTES # (AUTO) 2.8 10^3/uL (1.5-3.5); LYMPHOCYTES % (AUTO) 42.1 %; MEAN CORPUSCULAR HGB CONC 34.3 g/dL (32.0-36.0); MEAN CORPUSCULAR VOLUME 90.3 fL (81.0-99.0); MEAN PLATELET VOLUME 10.4 fL (7.9-10.8); MONOCYTES # (AUTO) 0.6 10^3/uL (0.0-1.0); MONOCYTES % (AUTO) 9.8 %; NEUTROPHILS % (AUTO) 45.5 %; PLT - PLATELET COUNT 158 10^3/uL (130-450); RED BLOOD COUNT 4.23 10^6/uL (4.20-5.40); RED CELL DISTRIBUTION WIDTH 12.7 % (12.0-15.0); WHITE BLOOD COUNT 6.6 x10^3/uL (4.8-10.8)
== END 2019-01-02 15:48 | disposition home or self-care (01) ==
LOC: LAB 15:47
PROVIDERS: ATTEND Obstetrics & Gynecology
DX: N87.1 Moderate cervical dysplasia (principal); F41.1 Generalized anxiety disorder
CPT/HCPCS: 36415; 85025

== ENCOUNTER 2019-01-04 | Day surgery (SDC) | payer MEDICAID | END 2019-01-04 06:14 | disposition home or self-care (01) | PROC: 0UBC7ZX Excision of Cervix, Via Natural or Artificial Opening, Diagnostic (ICD-10-PCS; principal; 2019-01-04) | DX: N87.1 Moderate cervical dysplasia (principal); F41.1 Generalized anxiety disorder; Z87.891 Personal history of nicotine dependence | CPT/HCPCS: 57460; 81025; A9270; J0131; J0690; J1170; J3490; J7120; 85025 ==

== ENCOUNTER 2019-03-21 23:38 | Emergency (ER) | payer MEDICAID ==
[2019-03-21 23:43] VITALS: BP 110/65
--- NOTE | 2019-03-21 23:48 | ED Physician Documentation ---
PD HPI FEMALE - Stated complaint Stated Complaint: FEMALE - Chief complaint Chief Complaint: UTI - History obtained from History obtained from: Patient - History of Present Illness Timing - onset: Today Timing - duration: Hours Timing - details: Abrupt onset Associated symptoms: Dysuria, Urinary frequency, Hematuria. No: Fever, Vaginal discharge, Genital sore/lesion Similar symptoms before: Diagnosis (UTIs) Review of Systems Constitutional: denies: Fever, Chills GI: reports: Nausea. denies: Vomiting : reports: Dysuria, Frequency, Hematuria. 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 HEENT: None Psych: None Musculoskeletal: None Derm: None - Past Surgical History Past Surgical History: Yes General: Appendectomy - Present Medications Home Medications: Ambulatory Orders Medication Instructions Recorded Confirmed Phenazopyridine HCl [Pyridium] 100 mg PO TID PRN #15 tablet 03/22/19 Sulfamethox/Trimeth 800/160 1 each PO BID #14 tablet 03/22/19 [Bactrim Ds 800/160] - Allergies Allergies/Adverse Reactions: Allergies Allergy/AdvReac Type Severity Reaction Status Date / Time No Known Drug Allergies Allergy Verified 03/21/19 23:40 - Social History Does the pt smoke?: No Smoking Status: Former smoker Does the pt drink ETOH?: Yes Does the pt have substance abuse?: No - Immunizations Immunizations are current?: Yes - POLST Patient has POLST: No PD ED PE NORMAL - Vitals Vital signs reviewed: Yes - General General: Alert and oriented X 3, No acute distress, Well developed/nourished - Abdomen Abdomen: Soft, Non tender - Female Female : Deferred - Rectal Rectal: Deferred - Back Back: No CVA TTP Results - Vitals Vitals: Oxygen O2 Source Room air - Labs Labs: Microbiology 03/21/19 23:46 Urine Culture - Preliminary Urine,Clean Catch CULTURE IN PROGRESS. RESULTS TO FOLLOW. Laboratory Tests 03/21/19 03/21/19 23:46 23:46 Urine Color YELLOW Urine Clarity CLEAR Urine pH 5.0 Ur Specific [place] 1.025 1.025 Urine Protein NEGATIVE Urine Glucose (UA) NEGATIVE Urine Ketones 15 H Urine Occult Blood LARGE H Urine Nitrite NEGATIVE Urine Bilirubin NEGATIVE Urine Urobilinogen 0.2 (NORMAL) Ur Leukocyte Esterase TRACE H Urine RBC TNTC H Urine WBC 11-25 H Ur Squamous Epith Cells RARE Squamous Urine Bacteria Rare Ur Microscopic Review INDICATED Urine Culture Comments INDICATED Urine HCG, Qual NEGATIVE PD MEDICAL DECISION MAKING - ED course Complexity details: considered differential (seems like UTI.), d/w patient Departure - Departure Disposition: Home, Self Care Clinical Impression: UTI (urinary tract infection) Qualifiers: Urinary tract infection type: acute cystitis Hematuria presence: with hematuria Qualified Code(s): N30.01 - Acute cystitis with hematuria Condition: Stable Record reviewed to determine appropriate education?: Yes Instructions: ED UTI Cystitis Female Follow-Up: Aditya Timmons PA-C [Primary Care Provider] - Prescriptions: Phenazopyridine HCl [Pyridium] 100 mg PO TID PRN #15 tablet PRN Reason: Abdominal Pain Sulfamethox/Trimeth 800/160 [Bactrim Ds 800/160] 1 each PO BID #14 tablet Comments: Stay well-hydrated. Tylenol or ibuprofen or naproxen if needed for pain and discomfort or fevers. Ondansetron if needed for nausea. Phenazopyridine to help with urinary discomfort. Bactrim antibiotic twice daily for a week. Recheck if not improving well over the next couple of days and return sooner if worsening. Forms: Activity restrictions Discharge Date/Time: 03/22/19 00:22
[2019-03-21 23:56] LABS: BILIRUBIN,URINE NEGATIVE (NEGATIVE); GLUCOSE, URINE (UA) NEGATIVE (NEGATIVE); KETONES,URINE (UA) 15 mg/dL (NEGATIVE); LEUKOCYTE ESTERASE, URINE TRACE (NEGATIVE); NITRITE,URINE NEGATIVE (NEGATIVE); OCCULT BLOOD,URINE LARGE (NEGATIVE); PROTEIN,URINE NEGATIVE (NEGATIVE); UROBILINOGEN,URINE 0.2 (NORMAL) E.U./dL (NORMAL)
[2019-03-21 23:58] LABS: CLARITY,URINE CLEAR (CLEAR); HCG UR QUAL NEGATIVE
[2019-03-21] MEDS ORDERED: PHENAZOPYRIDINE 100 MG TABLET PO STA (23:59)
[2019-03-21] MEDS ORDERED: NAPROXEN 250 MG TABLET PO STA (23:59)
[2019-03-21] MEDS ORDERED: SULFAMETH/TRIMETH DS 800/160 MG TABLET PO STA (23:59)
[2019-03-21] MEDS ORDERED: ONDANSETRON ODT 4 MG TABLET TL STA (23:59)
[2019-03-22 00:07] LABS: BACTERIA,URINE Rare /HPF (None Seen); RBC,URINE TNTC /HPF (0-5); SQUAMOUS EPITHELIAL CELL,UR RARE Squamous (<= Few)
== END 2019-03-22 00:22 | disposition home or self-care (01) ==
LOC: ED 23:38
DX: N30.01 Acute cystitis with hematuria (principal); Z87.891 Personal history of nicotine dependence
CPT/HCPCS: 81001; 81025; 87086; 99283; A9270; Q0162; 81003

== ENCOUNTER 2019-05-07 15:50 | Emergency (ER) | payer MEDICAID ==
[2019-05-07 16:02] VITALS: BP 118/65
--- NOTE | 2019-05-07 17:20 | ED Physician Documentation ---
PD HPI FEMALE - Stated complaint Stated Complaint: F - Chief complaint Chief Complaint: Abd Pain - History obtained from History obtained from: Patient - History of Present Illness Timing - onset: How many weeks ago (1) Timing - details: Gradual onset Associated symptoms: Vaginal pain, Vaginal discharge. No: Fever, Pelvic pain, Vaginal bleeding, Genital sore/lesion, Dysuria, Urinary frequency, Hematuria Contributing factors: Sexually active. No: , Exposed to STD Recently seen: Not recently seen - Additional information Additional information: There is a 23-year-old woman who presents with complaints that she has what she believes to be a yeast infection for about the past week. She is been using Monistat cream without relief. Is a constant burning its itchy and there is a bit of an odor. She is had a white discharge. She is in a monogamous relationship and Denies concern for sexually transmitted diseases. She denies any dysuria and has had no fever. She was recently treated with antibiotics for urinary tract infection. Review of Systems Constitutional: denies: Fever GI: denies: Abdominal Pain : reports: Discharge. 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: LEEP (Cervical surgery) - Present Medications Home Medications: Ambulatory Orders Medication Instructions Recorded Confirmed Cholecalciferol (Vitamin D3) 2,000 unit PO 05/07/19 [Vitamin D3] Ferrous Gluconate [Iron] 240 mg PO 05/07/19 05/07/19 Fluconazole [Diflucan] 150 mg PO DAILY #2 tablet 05/07/19 Fluconazole [Diflucan] 150 mg PO ONCE #1 tablet 05/07/19 Psyllium [Metamucil] 1 each PO DAILY 05/07/19 05/07/19 - Allergies Allergies/Adverse Reactions: Allergies Allergy/AdvReac Type Severity Reaction Status Date / Time No Known Drug Allergies Allergy Verified 05/07/19 16:02 - Social History Does the pt smoke?: No Smoking Status: Never smoker Does the pt drink ETOH?: Yes Does the pt have substance abuse?: No - Immunizations Immunizations are current?: Yes - POLST Patient has POLST: No PD ED PE NORMAL - Vitals Vital signs reviewed: Yes - General General: Alert and oriented X 3, No acute distress, Well developed/nourished - HEENT HEENT: Atraumatic - Female Female : Rn Ante Partum present, Other (There is a significant cottage cheesy white discharge on the labia minora and at the vaginal introitus. There is erythema and Inflammation of the labia minora. Intravaginal is thick clumps of cottage cheese but also kind of a yellowish thinner discharge. Cervix is coated with th e cottage cheese discharge. GC and chlamydia and a vaginitis probe were sent to the lab.) Results - Vitals Vitals: Vital Signs - 24 hr 05/07/19 16:00 Temperature 36.8 C Heart Rate 84 Respiratory 20 Rate Blood Pressure 118/65 O2 Saturation 100 Oxygen O2 Source Room air PD MEDICAL DECISION MAKING - ED course Complexity details: d/w patient ED course: GC chlamydia and vaginitis probe were sent to the lab. She will be treated with Diflucan and recommended to douche with [place] yogurt. Take probiotics orally and any time she takes antibiotics in the future. Departure - Departure Disposition: 01 Home, Self Care Clinical Impression: Vaginal candidiasis Condition: Good Instructions: ED Vaginal Infec Fungal Kristi Follow-Up: Aditya Timmons PA-C [Primary Care Provider] - Prescriptions: Fluconazole [Diflucan] 150 mg PO ONCE #1 tablet Fluconazole [Diflucan] 150 mg PO DAILY #2 tablet Comments: Take the Diflucan tablet as prescribed. Use [place] yogurt in the vagina at night for the next 3-5 nights to help repopulate the vaginal clemencia. Also taking probiotics orally can be very helpful. These can be purchased at the pharmacy [email or web address]. You should only need one Diflucan tablet but if that does not alleviate the symptoms I have provided 2 additional ones that can be used daily for 3 days total. Follow-up with your primary care provider if not improving.
[2019-05-07 19:25] LABS: CANDIDA GROUP DNA POSITIVE (NEGATIVE); CANDIDA KRUSEI DNA NEGATIVE (NEGATIVE); TRICHOMONAS VAGINALIS DNA NEGATIVE (NEGATIVE)
[2019-05-07 21:02] LABS: TRICHOMONAS VAGINALIS DNA NEGATIVE (NEGATIVE)
== END 2019-05-07 17:33 | disposition home or self-care (01) ==
LOC: ED 15:50
DX: B37.3 Candidiasis of vulva and vagina (principal)
CPT/HCPCS: 87491; 87591; 87661; 87801; 99283